=== PATIENT | female | born 1930 | race Caucasian/White ===

== ENCOUNTER 2016-12-21 23:26 | Inpatient (IN) | payer OTHER, MEDICARE ==
[~2016-12-21] VITALS: Ht 162.6 cm; Wt 72.6 kg
[~2016-12-21 23:26] MED LIST: CITALOPRAM HBR20 MG PO; CLOPIDOGREL75 M1 PO; FOSAMAX70 M1 PO; HYDRALAZINE HCL25 M1 PO; KLOR-CON 10MEQ10 MEQ PO; LISINOPRIL40 M1 PO; METOPROLOL SUCC25 M1 PO; METRONIDAZOLE500 MG PO; NEURONTIN100 M1 PO; NORVASC5 M1 PO; SYNTHROID88 MCG PO; VESICARE10 MG PO
--- NOTE | 2016-12-21 23:36 | NUR ---
TRIAGE: PATIENT TO ER FROM HOME REPORTING "BEEN ON THE TOILET W/ DIARRHEA SINCE 6PM, BRIGHT RED BLOOD IN THE TOILET. FELT LIKE I WAS SEEING SPOTS AND GOT VERY NAUSEOUS." DENIES VOMITTING/ CP/ SOB/ ABD PAIN. ALSO REPORTING INCREASED WEAKNESS (WALKER DEPENDENT BASELINE, UNABLE TO RISE W/O ASSIST X2 IN TRIAGE). CURRENTLY HAS A UTI PER PATIENT. ALSO REPORTING "VERY DRY MOUTH."
--- NOTE | 2016-12-21 23:43 | NUR ---
MD JOLENE SHINE FOR EVAL. ORTHOSTATIC BPS IN PROGRESS.
--- NOTE | 2016-12-21 23:54 | ED GI/GU/ABDOMINAL COMPLAINT ---
History of Present Illness General Chief Complaint: General Adult Stated Complaint: ?GI BLEED, BLOOD IN STOOL Source: patient, family, old records Exam Limitations: no limitations Vital Signs & Intake/Output Vital Signs & Intake/Output Vital Signs Date Time Temp Pulse Resp B/P B/P Pulse O2 O2 Flow FiO2 Mean Ox Delivery Rate 12/21 2352 66 153/71 12/21 2351 153/71 12/21 2337 97.9 67 18 96 Room Air ED Intake and Output 12/22 0000 12/21 1200 Intake Total Output Total Balance Patient 160 lb Weight Weight Reported by Patient Measurement Method Allergies Uncoded Allergies: "UNKNOWN ANTIBIOTIC" (PER PATIENT "FORGOT THE NAME" 12/21/16) Reconcile Medications Alendronate Sodium 70 MG TAB 1 TAB PO DAILY osteoporosis (Reported) Amlodipine (Norvasc 5MG Tab) 5 MG TABLET 1 TAB PO DAILY bp (Reported) Citalopram Hydrobromide (Citalopram HBr) 20 MG TABLET 1 TAB PO DAILY depression (Reported) CLOPIDOGREL BISULFATE (Clopidogrel) 75 MG TABLET 1 TAB PO DAILY pvd (Reported ) PLEASE RESTART ON Thursday Gabapentin 100 MG CAPSULE 1 TAB PO Q8H neuropathy (Reported) HYDRALAZINE HCL (Hydralazine HCl) 25 MG TABLET 1 TAB PO TID bp (Reported) Levothyroxine Sodium 0.088 MG TAB 1 TAB PO DAILY thyroid (Reported) Lisinopril 20 MG TABLET 1 TAB PO DAILY bp (Reported) Metoprolol Succinate 25 MG TAB.ER.24H 1 TAB PO DAILY bp (Reported) hold for sbp <100, hr < 60 Metronidazole 500 MG TAB 1 TAB PO TID c difficle Mirabegron (Myrbetriq) 50 MG TAB.ER.24H 50 MG PO D URINE (Reported) POTASSIUM CHLORIDE (KLOR-CON 10mEq TAB) 10 MEQ TABLET.ER 1 TAB PO DAILY supplement (Reported) Solifenacin Succinate (Vesicare) 10 MG TABLET 1 TAB PO DAILY overactive bladder (Reported) Triage Note: TRIAGE: PATIENT TO ER FROM HOME REPORTING "BEEN ON THE TOILET W/ DIARRHEA SINCE 6PM, BRIGHT RED BLOOD IN THE TOILET. FELT LIKE I WAS SEEING SPOTS AND GOT VERY NAUSEOUS." DENIES VOMITTING/ CP/ SOB/ ABD PAIN. ALSO REPORTING INCREASED WEAKNESS (WALKER DEPENDENT BASELINE, UNABLE TO RISE W/O ASSIST X2 IN TRIAGE). CURRENTLY HAS A UTI PER PATIENT. ALSO REPORTING "VERY DRY MOUTH." Triage Nurses Notes Reviewed? yes ? n Is pt currently ? No Onset: Gradual Duration: hour(s): Timing: single episode today Quality/Severity: cramping Location: generalized abdomen Radiation: no radiation Activities at Onset: pt has been on antibiotics Prior Abdominal Problems: none Modifying Factors: Worsens With: defecating. Associated Symptoms: abdominal pain HPI: 86 yo woman presents with diarrhea and abdominal pain since this evening, with few clots of blood mixed with her stool. She notes that she feels thirsty and weak. She notes diffuse abdominal cramps, no nausea, vomiting, diarrhea, chest pain. Her doctor notes her daughter notes that she is normally on Augmentin 3 times a week for prophylaxis of urinary tract infections. She began Bactrim approximately one week ago for treatment of an acute infection. h. Past History Travel History Traveled to [place] past 21 day No Medical History Any Pertinent Medical History? 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 No Review of Systems Review of Systems Constitutional: Reports: no symptoms. EENTM: Reports: no symptoms. Respiratory: Reports: no symptoms. Cardiovascular: Reports: no symptoms. GI: Reports: no symptoms. Genitourinary: Reports: no symptoms. Musculoskeletal: Reports: no symptoms. Skin: Reports: no symptoms. Neurological/Psychological: Reports: no symptoms. Hematologic/Endocrine: Reports: no symptoms. Immunologic/Allergic: Reports: no symptoms. All Other Systems: Reviewed and Negative Physical Exam Physical Exam General Appearance: well developed/nourished, mild distress Head: atraumatic, normal appearance Eyes: Bilateral: normal appearance. Ears, Nose, Throat, Mouth: hearing grossly normal Neck: normal inspection, supple, full range of motion, normal alignment Respiratory: normal breath sounds, chest non-tender, no respiratory distress, quiet respiration, lungs clear Cardiovascular: regular rate/rhythm Gastrointestinal: normal bowel sounds, soft, left sided tenderness without rebound or guarding. Rectal: mucusy stool streaked with mucusy blood Back: normal inspection Extremities: normal range of motion Neurologic/Psych: no motor/sensory deficits, awake, alert, oriented x 3 Skin: intact, normal color, warm/dry Core Measures ACS in differential dx? No Severe Sepsis Present: No Septic Shock Present: No Progress Differential Diagnosis: cholecystitis, diverticulitis, gastritis, hepatitis, PUD /GERD Plan of Care: Orders Procedure Date/time Status Patient Data 12/22 045 Active BLOOD CULTURE 12/22 045 Active Add-on Test (ER Only) 12/22 0415 Active CULTURE,URINE 12/22 0346 Active URINALYSIS 12/22 020 Complete TROPONIN LEVEL 12/21 2355 Complete LIPASE 12/21 2355 Complete LACTIC ACID 12/21 2355 Complete HEPATIC FUNCTION PANEL 12/21 2355 Complete CBC WITHOUT DIFFERENTIAL 12/21 2355 Complete BASIC METABOLIC PANEL 12/21 2355 Complete AMYLASE 12/21 2355 Complete EKG 12/21 2327 Active Current Medications Sig/Jason Start time Last Medication Dose Stop Time Status Admin Ceftriaxone Sodium 1,000 MG ONCE ONE 12/22 0500 UNVr (Rocephin) 12/22 0501 Metronidazole 500 MG ONCE ONE 12/22 0500 UNVr (Flagyl) 12/22 0501 Laboratory Tests 12/22/16 0346: Urinalysis MOD H, Urine Color DIEUDONNE, Urine Clarity TURBD H, Urine pH 6.0, Ur Specific [place] 1.020, Urine Protein >=300 H, Urine Ketones TRACE H, Urine Nitrite POS H, Urine Bilirubin NEG@ICTO, Urine Urobilinogen 1.0, Ur Leukocyte Esterase LARGE H, Ur Microscopic SEDIMENT EXAMINED, Urine RBC >75 H, Urine WBC 50-75 H, Urine Bacteria MANY H, Hyaline Casts , Granular Casts 1-3 H, Urine Mucus MANY H, Urine Hemoglobin LARGE H, Urine Glucose NEG 12/22/16 0255: Lactic Acid Cancelled 12/22/16 0012: Anion Gap 14, Estimated GFR 52 L, BUN/Creatinine Ratio 23.0, Glucose 145 H, Lactic Acid 2.0, Calcium 9.2, Total Bilirubin 0.4, Direct Bilirubin 0.2, AST 26, ALT 29, Alkaline Phosphatase 46, Troponin I 0.01, Total Protein 7.0, Albumin 4.1 , Amylase 314 H, Lipase 271, CBC w Diff MAN DIFF ORDERED, RBC 4.06 L, MCV 92.2 , MCH 30.4, RDW 15.0 H, MPV 7.2 L, Gran % 90.7 H, Lymphocytes % 3.8 L, Monocytes % 5.4, Eosinophils % 0, Basophils % 0.1, Absolute Granulocytes 11.9 H , Segmented Neutrophils 78 H, Band Neutrophils 9 H, Absolute Lymphocytes 0.5 L, Lymphocytes 6 L, Monocytes 7, Absolute Monocytes 0.7 H, Absolute Eosinophils 0, Absolute Basophils 0, Platelet Estimate ADEQUATE, Normocytic RBCs VERIFIED, Normochromic RBCs VERIFIED, PUBS MCHC 33.0 Microbiology 12/22 449 BLOOD: Blood Culture - ORD 12/22 449 BLOOD: Blood Culture - ORD 12/22 034 URINE ROUT: Urine Culture - RECD Diagnostic Imaging: Viewed by Me: CT Scan. Discussed w/RAD: CT Scan. Radiology Impression: abd/pelvic ct... colitis, thickened bladder Initial ED EKG: left axis deviation. no acute change. Comments: PATIENT: ROYAL MOMIN PRESENT AGE: 86 PATIENT ACCOUNT NO: [id number] : [birth year] LOCATION: [facility] ORDERING PHYSICIAN: GILMA MEEKS MD SERVICE DATE: 12/22/16 EXAM TYPE: CAT - CT ABD & PELVIS W/O IV CONTRAS EXAMINATION: CT ABDOMEN AND PELVIS WITHOUT CONTRAST CLINICAL INFORMATION: Diarrhea, left-sided abdominal discomfort. COMPARISON: 10/24/2013 TECHNIQUE: Multidetector volumetric imaging was performed from the superior aspect of the liver through the pubic symphysis. Sagittal and coronal reformatted images were obtained on the technologist's workstation. DLP: 314 mGy-cm FINDINGS: LUNG BASES: Large hiatal hernia produces mass effect upon the left lower lobe with associated left lower lobe atelectasis. Heart is globally enlarged. LIVER, GALLBLADDER, AND BILIARY TREE: The liver is normal in size, shape, and attenuation. No focal hepatic lesion or biliary ductal dilatation is present. The gallbladder is unremarkable with no evidence of radiopaque gallstones, gallbladder wall thickening, or obvious pericholecystic inflammatory changes. PANCREAS: Unremarkable. SPLEEN: Unremarkable. ADRENAL GLANDS: Unremarkable. KIDNEYS AND URETERS: The kidneys are normal in size, shape, and attenuation. No hydronephrosis, hydroureter, or calculi seen. No perinephric stranding. BLADDER: Bladder is diffusely thick-walled, suggesting underlying inflammation. No focal lesions are identified. GASTROINTESTINAL TRACT: Large hiatal hernia is present, containing the majority of the stomach. Small bowel is normal in caliber. There is herniation of numerous loops of small bowel into the left lower quadrant hernia, likely a large spigelian hernia. The terminal ileum and cecum are situated within a right inguinal hernia. The right inguinal hernia may be a pantaloon type variant. Significant fluid is present within the more inferior pocket. There is diffuse wall thickening in the colon with pericolonic fat stranding, most pronounced in the descending colon, most concerning for colitis. The sensitivity and specificity of this abnormality is somewhat limited by the absence of intravenous and oral contrast material. No evidence of obstruction. ABDOMINAL WALL: As above, are prominent bowel containing hernias in the left lower quadrant and right lower quadrant. The left lower quadrant hernia is likely a spigelian hernia. The right lower quadrant hernia appears mixed with 2 separate components, potentially both inguinal or 1 inguinal and 1 spigelian. Fluid is present within the inferior component of the right lower quadrant/inguinal hernia. No evidence of obstruction. LYMPH NODES: No appreciable adenopathy. VASCULAR: Calcific atherosclerosis is present in the abdominal aorta and iliac arteries. No aneurysmal dilatation. PELVIC VISCERA: Uterus is surgically absent. Ovaries are not discretely seen. OSSEOUS STRUCTURES: There is severe left convex lumbar scoliosis with multilevel degenerative disc disease. There is a chronic compression deformity of L4 which is status post kyphoplasty. No acute fractures are appreciated. IMPRESSION: 1. Pancolitis, most pronounced in the descending colon. 2. Large hiatal hernia 3. Large bowel containing hernias in the left lower quadrant and right lower quadrant. No evidence of obstruction. 4. Thickened bladder wall, potentially due to underlying inflammation. Consider correlation with urinalysis to assess for potential cystitis. 5. Cardiomegaly DICTATED BY: ARPAN RIBEIRO MD DATE/TIME DICTATED:12/22/1648 SEMI AUTOMATIC SEWING MACHINE OPERATOR:RANJEET DATE/TIME TRANSCRIBED:12/22/1648 CONFIDENTIAL, DO NOT COPY WITHOUT APPROPRIATE AUTHORIZATION. <Electronically signed in Other Vendor System> SIGNED BY: ARPAN RIBEIRO MD 12/22/16 0103 Departure Departure Disposition: HOME OR SELF CARE Condition: Stable Clinical Impression Primary Impression: UTI (urinary tract infection) Secondary Impressions: Colitis, Weakness Referrals: DEBBY RALPH,CONSTANCE Craft (PCP/Family) Departure Forms: Customer Survey General Discharge Information Admission Note Spoke With: STEPHANE WILSON MD Documentation of Exam: Documentation of any treatments & extenuating circumstances including Concerns Regarding Discharge (functional status, medication knowledge or non-compliance, living conditions, etc.) that warrant an admission rather than observation: pt with multi-system involvement: She has a uti that is recalcitrant to outpatient abx (bactrim x 1 week with augmentin prophylaxis). Also, pt with payton colitis
--- NOTE | 2016-12-22 00:11 | NUR ---
PT MOVED TO RM 1, PT PLACED ON MONITOR. THIS RN ESTABLISHED IV ACCESS IN RAC #20 (LABS DRAWN AND SENTSST LAV, BLUE, PICKENS)
--- NOTE | 2016-12-22 00:25 | NUR ---
PT TO CT SCAN VIA STRETCHER, DAUGHTER IN RM AWAITING RETURN OF PT
[2016-12-22 00:35] LABS: ABSOLUTE BASOPHIL COUNT 0 /CUMM (0.0-0.2); ABSOLUTE EOSINOPHIL COUNT 0 /CUMM (0.0-0.7); ABSOLUTE GRANULOCYTE CT 11.9 /CUMM (1.4-6.5); ABSOLUTE LYMPH COUNT 0.5 /CUMM (1.2-3.4); ABSOLUTE MONOCYTE COUNT 0.7 /CUMM (0.10-0.60); BASOPHIL % 0.1 % (0.0-2.0); EOSINOPHIL % 0 % (0-5); HEMATOCRIT 37.4 % (37-47); MEAN CORPUSCULAR HGB 30.4 PG (27.0-31.0); MEAN CORPUSCULAR VOLUME 92.2 FL (81.0-99.0); MEAN PLATELET VOLUME 7.2 FL (7.4-10.4); PLATELET COUNT 330 /CUMM (130-400); RED BLOOD CELL CT 4.06 /CUMM (4.20-5.40); WHITE BLOOD CELL COUNT 13.1 /CUMM (4.8-10.8)
[2016-12-22 00:37] LABS: GRANULOCYTE % 90.7 % (42.2-75.2)
--- NOTE | 2016-12-22 00:43 | NUR ---
RETURNED TO ED
--- NOTE | 2016-12-22 00:58 | NUR ---
CRITICAL TEST RESULTS [id number] ROYAL MOMIN 86 F TESTS AND RESULTS: LACTIC 2.0 Results received and read back by: MIRIAM WIGGINS Results received date and time: 12/22/1657 The following provider was notified of the results, and read the results back: DR MEEKS Notified date and time: 12/22/16 at 0058
--- NOTE | 2016-12-22 01:03 | CT SCAN REPORT ---
EXAMINATION: CT ABDOMEN AND PELVIS WITHOUT CONTRAST CLINICAL INFORMATION: Diarrhea, left-sided abdominal discomfort. COMPARISON: 10/24/2013 TECHNIQUE: Multidetector volumetric imaging was performed from the superior aspect of the liver through the pubic symphysis. Sagittal and coronal reformatted images were obtained on the technologist's workstation. DLP: 314 mGy-cm FINDINGS: LUNG BASES: Large hiatal hernia produces mass effect upon the left lower lobe with associated left lower lobe atelectasis. Heart is globally enlarged. LIVER, GALLBLADDER, AND BILIARY TREE: The liver is normal in size, shape, and attenuation. No focal hepatic lesion or biliary ductal dilatation is present. The gallbladder is unremarkable with no evidence of radiopaque gallstones, gallbladder wall thickening, or obvious pericholecystic inflammatory changes. PANCREAS: Unremarkable. SPLEEN: Unremarkable. ADRENAL GLANDS: Unremarkable. KIDNEYS AND URETERS: The kidneys are normal in size, shape, and attenuation. No hydronephrosis, hydroureter, or calculi seen. No perinephric stranding. BLADDER: Bladder is diffusely thick-walled, suggesting underlying inflammation. No focal lesions are identified. GASTROINTESTINAL TRACT: Large hiatal hernia is present, containing the majority of the stomach. Small bowel is normal in caliber. There is herniation of numerous loops of small bowel into the left lower quadrant hernia, likely a large spigelian hernia. The terminal ileum and cecum are situated within a right inguinal hernia. The right inguinal hernia may be a pantaloon type variant. Significant fluid is present within the more inferior pocket. There is diffuse wall thickening in the colon with pericolonic fat stranding, most pronounced in the descending colon, most concerning for colitis. The sensitivity and specificity of this abnormality is somewhat limited by the absence of intravenous and oral contrast material. No evidence of obstruction. ABDOMINAL WALL: As above, are prominent bowel containing hernias in the left lower quadrant and right lower quadrant. The left lower quadrant hernia is likely a spigelian hernia. The right lower quadrant hernia appears mixed with 2 separate components, potentially both inguinal or 1 inguinal and 1 spigelian. Fluid is present within the inferior component of the right lower quadrant/inguinal hernia. No evidence of obstruction. LYMPH NODES: No appreciable adenopathy. VASCULAR: Calcific atherosclerosis is present in the abdominal aorta and iliac arteries. No aneurysmal dilatation. PELVIC VISCERA: Uterus is surgically absent. Ovaries are not discretely seen. OSSEOUS STRUCTURES: There is severe left convex lumbar scoliosis with multilevel degenerative disc disease. There is a chronic compression deformity of L4 which is status post kyphoplasty. No acute fractures are appreciated. IMPRESSION: 1. Pancolitis, most pronounced in the descending colon. 2. Large hiatal hernia 3. Large bowel containing hernias in the left lower quadrant and right lower quadrant. No evidence of obstruction. 4. Thickened bladder wall, potentially due to underlying inflammation. Consider correlation with urinalysis to assess for potential cystitis. 5. Cardiomegaly
[2016-12-22] MEDS ORDERED: MYRBETRIQ50 M1 PO (02:08)
--- NOTE | 2016-12-22 03:01 | NUR ---
DR NIETO FOR POC
--- NOTE | 2016-12-22 03:47 | NUR ---
URINE TRIO OBTAINED AND SENT TO LAB
--- NOTE | 2016-12-22 04:06 | NUR ---
AWAITING URINE SPECIMEN RESULTS.
--- NOTE | 2016-12-22 04:29 | NUR ---
MD MEEKS SPEAKING W/ PATIENT.
--- NOTE | 2016-12-22 04:37 | NUR ---
DR MEEKS IN FOR POC
--- NOTE | 2016-12-22 04:57 | History & Physical ---
JULIANO RALPH,[facility] 12/22/16 0456: General Information and HPI MD Statement: I have seen and personally examined ROYAL MOMIN and documented this H&P. The patient is a 86 year old F who presented with a patient stated chief complaint of [blood in stool]. Source of Information: patient, family (daughter) Exam Limitations: no limitations History of Present Illness: The patient is a 78-year-old female with a past history of CVA, hypertension, GERD, UTI, osteoarthritis, hypothyroidism, neuropathic pain, depression,and urinary incontinence presenting with complaints of blood in her stool. The patient's daughter stated this started couple days ago when the patient noted some blood in her diaper. The daughter asked if the patient would like to go to her PCP. The patient said no. The patient states that the initial blood in her diaper resolved this morning. However, the patient states she started having bloody diarrhea around 6 PM today. The daughter states that she the patient was on the toilet for about 4 hours. The patient has noticed clots and bright red blood in the toilet. Around 10 PM the patient called her daughter to bring her into the emergency department. The daughter noticed that the patient was pale and weak. The daughter was concerned of a GI bleed secondary to Plavix. The patient denies any chest pain, shortness of breath, nausea or vomiting. The patient is on Augmentin prophylactically but was switched to Bactrim by her PCP, Dr. Russo last week on December 12 for presumed UTI due to symptoms of dysuria, increased urinary frequency, hematuria and chills. 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 Cardiovascular: Denies: chest pain. Respiratory: Denies: short of breath. GI: Denies: nausea, vomiting. Exam & Diagnostic Data Last 24 Hrs of Vital Signs/I&O Vital Signs Date Time Temp Pulse Resp B/P B/P Pulse O2 O2 Flow FiO2 Mean Ox Delivery Rate 12/21 2352 66 153/71 12/21 2351 153/71 12/21 2337 97.9 67 18 96 Room Air Intake & Output 12/22 0800 12/22 0000 12/21 1600 Intake Total 500 Output Total Balance 500 Intake, IV 500 Patient 160 lb Weight Weight Reported by Patient Measurement Method Physical Exam General Appearance Alert, Oriented X3, Cooperative, No Acute Distress HEENT Atraumatic, PERRLA, EOMI, no tracheal deviation, tenderness, or lymphadenopathy of the neck Cardiovascular systolic murmur loudest in the aortic region Lungs Clear to Auscultation, Normal Air Movement Abdomen Normal Bowel Sounds, Soft, No Tenderness, abdominal hernia noted on the right and left abdomen Neurological Normal Speech Extremities No Edema, Normal Pulses, chronic venous stasis changes greater on the right than left Last 24 Hrs of Labs/Chas: Laboratory Tests 12/22/16 0346: Urinalysis MOD H, Urine Color DIEUDONNE, Urine Clarity TURBD H, Urine pH 6.0, Ur Specific [place] 1.020, Urine Protein >=300 H, Urine Ketones TRACE H, Urine Nitrite POS H, Urine Bilirubin NEG@ICTO, Urine Urobilinogen 1.0, Ur Leukocyte Esterase LARGE H, Ur Microscopic SEDIMENT EXAMINED, Urine RBC >75 H, Urine WBC 50-75 H, Urine Bacteria MANY H, Hyaline Casts , Granular Casts 1-3 H, Urine Mucus MANY H, Urine Hemoglobin LARGE H, Urine Glucose NEG 12/22/16 0255: Lactic Acid Cancelled 12/22/16 0012: Anion Gap 14, Estimated GFR 52 L, BUN/Creatinine Ratio 23.0, Glucose 145 H, Lactic Acid 2.0, Calcium 9.2, Total Bilirubin 0.4, Direct Bilirubin 0.2, AST 26, ALT 29, Alkaline Phosphatase 46, Troponin I 0.01, Total Protein 7.0, Albumin 4.1 , Amylase 314 H, Lipase 271, TSH 12.400 H, Free T4 1.22, CBC w Diff MAN DIFF ORDERED, RBC 4.06 L, MCV 92.2, MCH 30.4, RDW 15.0 H, MPV 7.2 L, Gran % 90.7 H, Lymphocytes % 3.8 L, Monocytes % 5.4, Eosinophils % 0, Basophils % 0.1, Absolute Granulocytes 11.9 H, Segmented Neutrophils 78 H, Band Neutrophils 9 H, Absolute Lymphocytes 0.5 L, Lymphocytes 6 L, Monocytes 7, Absolute Monocytes 0.7 H, Absolute Eosinophils 0, Absolute Basophils 0, Platelet Estimate ADEQUATE, Normocytic RBCs VERIFIED, Normochromic RBCs VERIFIED, PUBS MCHC 33.0 Microbiology 12/22 0713 STOOL: Clostridium difficile Toxin A & B - ORD 12/22 0641 BLOOD: Blood Culture - RECD 12/22 0510 BLOOD: Blood Culture - RECD 12/22 0346 URINE ROUT: Urine Culture - RECD Diagnostic Data Other Results CT ABD IMPRESSION: 1. Pancolitis, most pronounced in the descending colon. 2. Large hiatal hernia 3. Large bowel containing hernias in the left lower quadrant and right lower quadrant. No evidence of obstruction. 4. Thickened bladder wall, potentially due to underlying inflammation. Consider correlation with urinalysis to assess for potential cystitis. 5. Cardiomegaly Assessment/Plan Assessment: The patient is a 78-year-old female with a past history of CVA, hypertension, GERD, UTI, osteoarthritis, hypothyroidism, neuropathic pain, depression,and urinary incontinence presenting with complaints of blood in her stool found to have pancolitis on CT abdomen and evidence of ongoing urinary tract infection on urinalysis. As Ranked By This Provider Problem List: 1. Colitis Assessment/Plan The patient's daughter stated this started couple days ago when the patient noted some blood in her diaper. The patient started having bloody diarrhea around 6 PM today and was on the toilet for about 4 hours. The patient has noticed clots and blood in the toilet. The daughter was concerned of a GI bleed secondary to Plavix. She was afebrile on exam, WBC 13.1, lactate 2.0, amylase 314. H&H was 12.3 and 37.4 respectively. Given the patient's presentation of bloody diarrhea and pancolitis on CT, differential includes C. difficile infection, ulcerative colitis/Crohn's disease. We will treat prophylactically for C. difficile infection with Flagyl. We will obtain a C. difficile toxin stool sample. We will hemooccult all stools. We will keep her NPO and hydrate with D5-1/2 @100ml/hr. We will monitor her CBC q12 hours. We will need a GI consult for further management recommendations. We will consider holding Plavix until GI recommendations. -hemooccult all stools -f/u CBCs and BMP, tranfuse if hgb<7. -monitor CBC q12 hrs -Continue Flagyl 500 mg every 8 -Follow-up C. difficile stool toxin/culture -Follow-up GI consult -Consider holding Plavix until GI recommendations 2. UTI (urinary tract infection) Assessment/Plan The patient had symptoms of UTI on December 12. Her daughter called her PCP, Dr. Russo who switched her from her daily Augmentin prophylaxis to Bactrim. On admission her temperature was 97.9, white count 13.1, lactic acid 2.0, BUN/ creatinine 23, and creatinine 1.0 which is above her baseline of 0.8. Her urinalysis revealed positive large leukoesterase, positive nitrites, white blood cells 50-75 and greater than 75 red blood cells. We will continue the patient on IV ceftriaxone and follow-up urine cultures. We will also hydrate the patient on normal saline at 75 mL/hr. -Follow-up urine culture -Continue ceftriaxone -Continue hydration d5 1/2 NS @ 100ml/hr as stated above 3. HTN (hypertension) Assessment/Plan Patient has a history of hypertension. We'll continue her on her home medications. -Metoprolol 25 mg daily -Amlodipine 5 mg daily 4. Depression Assessment/Plan The patient has history of depression. We'll continue her on home medications. -Citalopram 20 mg daily 5. Hypothyroidism Assessment/Plan The patient has history of hypothyroidism. We will continue her on home medications -levothyroxine 0.088 mg daily 6. Neuropathic pain Assessment/Plan The patient has history of neuropathic pain. We'll continue her on home medication -Gabapentin 100 mg 3 times a day 7. DVT prophylaxis Assessment/Plan ALPS 8. Full code status Assessment/Plan Full code Core Measures/Miscellaneous Acute Coronary Syndrome ACS Diagnosis: No Cerebrovascular Accident CVA/TIA Diagnosis: No Congestive Heart Failure CHF Diagnosis: No VTE (View Protocol) VTE Risk Factors: Acute medical illness, Age > 40 [facility] prophylaxis d/t: No contraindications No VTE Pharm Prophylaxis d/t: No contraindications VTE Diagnosis: No VTE Type: NONE VTE Confirmed by (Test): NONE Sepsis (View Protocol) Severe Sepsis Present: No Septic Shock Septic Shock Present: No Miscellaneous Documentation Attending Case Discussed With: NARESH GONZALEZ M.D Primary Care Physician: CONSTANCE RUSSO MD Patient sees these Specialists NA Level of Patient Care: General Medicine ASHUTOSH PEREZ MD 12/22/16 0617: Resident Review Statement Resident Statement: examined this patient, discussed with internet assessor, agreed with internet assessor Other Findings: H: This is a very pleasant 86-year-old female with past medical history of recurrent UTIs, hypothyroidism, CVA, hypertension, depression, urinary incontinence, neuropathic pain who presented to the emergency department on 12/22 complaining of weakness, and acute diarrhea which began in the early evening of 12/21/2016. Some of the clinical history was obtained from the patient's daughter Brie who was present at the time of our interaction. On 12/12/2016 the patient began to experience urine frequency, dysuria and hematuria. She was subsequently started on Bactrim twice a day for presumed UTI under the care of a primary care physician Dr. Mosley. Patient reports that she began to feel better however in the early evening of 12/21/2016 at approximately 6 PM she began to experience worsening abdominal pain and diarrhea. She states that she spent approximately 4 hours having multiple loose stools. This stool contained combination of clots and hematochezia. At approximately 10 PM the patient called her daughter and the decision was made to bring the patient into the emergency department for additional care. Patient's daughter can be reached on [phone]. It must be mentioned in addition to the above the patient does have a history of chronic urinary tract infections and is prophylactically treated with Augmentin 3 times a per week. Patient does have a history to allergies with nitrofurantoin. R: Patient reports subjective chills. She denies any vomiting. She denies any chest pain or chest discomfort. She denies any difficulty breathing. She also states that she had a slight fever. E: HEENT: extraocular motion intact, no nystagmus. Pupils equally round and reactive to light and accommodation. Nose is atraumatic. External auditory canal and Tympanic membranes clear. Pharynx normal. No swelling or edema. Mucous membranes dry. Neck: Supple, no lymphadenopathy, normal range of motion without pain or tenderness Back: Nontender. Cardiovascular: Regular rate, systolic murmur noted, loudest in Mitral Area Respiratory: Chest nontender. CTA Abdomen: Soft, tender with light palpation on LLQ. nondistended, no appreciable organomegaly. Bowel sounds +. No ascites, no rebound or guarding. Extremity: No edema, no calf tenderness to palpation, normal and equal pulses. Neuro: Alert oriented to person and place,motor sensory normal, CN II to XII wnl. L: Labs at the time of admission notable for white cell count of 13.1. Band neutrophils 9. BUNs 23. Creatinine 1.0. Glucose 145. Initial amylase 314. TSH and free T4 currently pending. Urine + for Nitrite and Large Leukocyte Esterase I: CT ABD & PELVIS W/O IV CONTRAST IMPRESSION: 1. Pancolitis, most pronounced in the descending colon. 2. Large hiatal hernia 3. Large bowel containing hernias in the left lower quadrant and right lower quadrant. No evidence of obstruction. 4. Thickened bladder wall, potentially due to underlying inflammation. Consider correlation with urinalysis to assess for potential cystitis. 5. Cardiomegaly A/P: This is a very pleasant 86-year-old female with past medical history of recurrent UTIs, hypothyroidism, CVA, hypertension, depression, urinary incontinence, neuropathic pain who presented to the emergency department on 12/22 complaining of weakness, and acute diarrhea which began in the early evening of 12/21/2016. The patient above is leaning towards an acute episode of C. difficile in the setting of recent antibiotic exposure. This is somewhat a typical owing to the fact that C.Diff is not associated with blood in stool. Patient also continues to have evidence of leukocyte esterase in urine and positive nitrite. At the ED, the patient was: Bolus with 500 ml of fluids. Given a One time order of ceftriaxone (1000 mg) and one time order of metronidazole (500 mg) Admit the patient to general medicine. Follow-up urine culture. For now we will continue the patient on IV Ceftriaxone , till sensitivities return. Patient has previously grown Escherichia coli sensitive to, ciprofloxacin, gentamicin, levofloxacin, TMP-SMX and amoxicillin/ Clavulinic Acid. Gentle IV hydration at 75 mL. Continue by mouth Flagyl 500 mg Q8 for presumed C. difficile. Will likely require 10 - 14 days of therapy if positive. f/u C.Diff toxin. May Cosider ID Consultation. GI consult obtained in the setting of pancolitis (other causes for payton colitis may include IBD/acute ischemic colitis) found on imaging studies. Repeat CBC and BEP 12/23/2016. Hemoccult all stools. Continue levothyroxine, follow up TSH and Free T4 to ensure therapeutic values are being reached. Continue metoprolol extended release 25 mg daily. Continue citalopram. May resume medications one patient is more stable and does not have evidence of GI blood loss. Keep NPO for now, incase emergent GI work up is warranted. DVT prophylaxis: ALPS. Patient is a full code. LISA RALPH,NARESH 12/22/16 8188: General Information and HPI Allergies/Medications Home Med list Alendronate Sodium (Fosamax) 70 MG TABLET 1 TAB PO QSATUR OSTEOPOROSIS ( Reported) in the morning, at least 30 minutes before the first food, beverage, or medication of the day Amlodipine Besylate (Norvasc) 5 MG TABLET 1 TAB PO DAILY HTN (Reported) Cholecalciferol (Vitamin D3) (Vitamin D3) 1,000 UNIT CAPSULE 1 CAP PO DAILY SUPPLEMENT (Reported) Citalopram Hydrobromide (Citalopram HBr) 20 MG TABLET 1 TAB PO AT BEDTIME DEPRESSION (Reported) Clopidogrel Bisulfate (Clopidogrel) 75 MG TABLET 1 TAB PO DAILY TIA (Reported ) Cyanocobalamin (Vitamin B-12) 1,000 MCG TABLET 1 TAB PO DAILY SUPPLEMENT ( Reported) Fish Oil/Borage/Flax/Om3,6,9#1 ([place] 3-6-9 1,200 MG Softgel) 1,200 MG CAPSULE 1 CAP PO DAILY SUPPLEMENT (Reported) Furosemide (Lasix) 40 MG TABLET 1 TAB PO DAILY WATER PILL (Reported) Gabapentin (Neurontin) 100 MG CAPSULE 1 CAP PO TID NEUROPATHY (Reported) Hydralazine HCl 25 MG TABLET 1 TAB PO TID HTN (Reported) Levothyroxine Sodium (Synthroid) 88 MCG TABLET 1 TAB PO DAILY HYPOTHYROIDISM (Reported) Lisinopril 40 MG TABLET 1 TAB PO DAILY HTN (Reported) Metoprolol Succinate 25 MG TAB 1 TAB PO DAILY HEART (Reported) Mirabegron (Myrbetriq) 50 MG TAB.ER.24H 50 MG PO DAILY URINE (Reported) Oxybutynin Chloride (Ditropan XL) 10 MG TAB.ER.24 1 TAB PO DAILY URINARY INCONTINENCE (Reported) Oxycodone HCl/Acetaminophen (Endocet 5-325 Tablet) 5 MG-325 MG TABLET 1 TAB PO DAILY PRN PAIN (Reported) Potassium Chloride (Klor-Con 10) 10 MEQ TABLET.ER 1 TAB PO DAILY SUPPLEMENT ( Reported) POTASSIUM CHLORIDE (KLOR-CON 10mEq TAB) 10 MEQ TABLET.ER 1 TAB PO DAILY supplement (Reported) Solifenacin Succinate (Vesicare) 10 MG TABLET 1 TAB PO DAILY overactive bladder (Reported) Attending MD Review Statement Attending Statement Attending MD Statement: examined this patient, discuss w/resident/PA/BAKERY AND DELI SALES MANAGER, agreed w/resident/PA/BAKERY AND DELI SALES MANAGER, reviewed EMR data (avail), discussed with nursing, amended to note Attending Assessment/Plan: Patient seen and examined. I have reviewed and agree with the history of physical as dictated by the resident above. Patient is a very pleasant 78-year- old female with history significant for colitis about 3 years ago managed conservatively at that time. Presents with complaints of painless rectal bleeding. Blood was bright red in color and not just in her diaper. She had several episodes prior to presentation. Denied abdominal pain. Denied nausea vomiting. Denied any trauma. Also significant in her history is recent use of Bactrim for bout of urinary tract infection. At present she denies any dysuria although she continues to report urinary incontinence. 's arrival emergency room she was hemodynamically stable she did have a low- grade fever while in the emergency room. Imaging reveals pancolitis and thickened urinary bladder wall potentially due to underlying inflammation. On examination she is alert and oriented 3 and not in any distress. Lungs are clear to auscultation bilaterally. Heart sounds are regular with a 2/6 systolic normal. Lungs are clear to auscultation bilaterally. Abdomen is nondistended soft, nontender with normal bowel sounds. Lower extremities show trace pedal edema. Problems: 1. Lower gastrointestinal bleeding 2. Pancolitis 3. Cystitis 4. Uncontrolled hypothyroidism Plan: -Admit to the inpatient general medical service. -Keep nothing by mouth and hydrated with D5 half at 100 mL an hour. -Monitor CBCs every 12 hours. Transfuse to keep hemoglobin greater than 7. -Empiric antibiotic therapy with Rocephin/Flagyl. Follow-up stool for C. difficile and culture. Ischemic colitis appears less likely with a normal lactic acid level. Elevated amylase level is nonspecific. -GI consultation placed. -Follow-up urine cultures. Patient's currently empirically on Rocephin. -Increase Synthroid dose to 100 g daily. Repeat TSH in 72 hours and then in 6 weeks. -Hold Plavix for now which she was started on digital history of TIA. May resume if she shows no evidence of significant bleeding. -DVT prophylaxis with bilateral compression devices for now. Mobilize patient as tolerated.
--- NOTE | 2016-12-22 06:30 | NUR ---
PHARMACY PAGED FOR MEDS.
--- NOTE | 2016-12-22 06:52 | NUR ---
PATIENT MEDICATED W/ NEURONTIN AND SYNTHROID PER EMAR. TOLERATED WELL.
--- NOTE | 2016-12-22 08:08 | NUR ---
ASSUMED CARE OF PT AT THIS TIME. PT AWOKEN FOR VITAL SIGNS, STATES SHE FEELS "SO-SO" THIS MORNING. STATES SHE IS JUST TIRED AND WOULD LIKE TO SLEEP. PT AWARE SHE IS ON AN NPO DIET AT THIS TIME. PT OFFERS NO COMPLAINT, LIGHTS DIMMED SO PT CAN GO BACK TO SLEEP, CALL JAVED IN REACH. DENIES PAIN AT THIS TIME. WILL CTM
--- NOTE | 2016-12-22 08:36 | NUR ---
NORAML SALINE INFUISNG AT 75ML/HR AT THIS TIME PER ORDER FROM BRIDGET
--- NOTE | 2016-12-22 08:50 | NUR ---
pt to room 203
--- NOTE | 2016-12-22 09:32 | NUR ---
ATTEMPTED TO CALL REPORT TO FLOOR, NO ANSWER. AWAITING CALL BACK
[2016-12-22 11:47] VITALS: BP 116/60
[2016-12-22] MEDS ORDERED: LASIX40 M1 PO (12:08)
[2016-12-22] MEDS ORDERED: DITROPAN XL10 M1 PO (12:08)
[2016-12-22] MEDS ORDERED: KLOR-CON 1010 ME1 PO (12:09)
[2016-12-22] MEDS ORDERED: VITAMIN D31000 UNI1 PO (12:10)
[2016-12-22] MEDS ORDERED: VITAMIN B-121000 MC3 PO (12:10)
[2016-12-22] MEDS ORDERED: OMEGA 3-6-9 11200 MG PO (12:11)
[2016-12-22] MEDS ORDERED: ENDOCET 5-3251 EACH PO (12:12)
--- NOTE | 2016-12-22 12:30 | NUR ---
NURSING NOTE: PATIENT ARRIVED TO FLOOR VIA STRETCHER WITH DISITRIBUTION FROM ER. PATIENT A/OX3, DENIES PAIN AT THIS TIME. NO ACUTE DISTRESS NOTED AT THIS TIME. ONE BELONGING BAG AND PATIENT'S WALKER FROM HOME BROUGHT WITH PATIENT FROM ER. PATIENT REQUESTING TO WEAR A BRIEF AT THIS TIME SHE NORMALLY WEARS THEM AT HOME AND STATES SHE IS MORE COMFORTABLE IN ONE. IV RUNNING NS PER ORDER. PATIENT WALKED AX1 WITH RW FROM STRETCHER TO RECLINER CHAIR. PATIENT NPO AT THIS TIME, ICE CHIPS GIVEN PER ORDER. CALL JAVED REACH. FALL PRECAUTIONS IN PLACE. WILL CONTINUE TO MONITOR.
--- NOTE | 2016-12-22 12:33 | NUR ---
NURSING NOTE: PATIENT TEMP AT THIS TIME 100.1 AFTER TYLENOL 650MG GIVEN IN ER. ALUMINUM POURER 211 NOTIFIED. INSTRUCTED TO GIVEN IV TYLENOL PER ORDER AND RE-CHECK TEMP IN 1 HOUR.
--- NOTE | 2016-12-22 14:15 | Cons- Gastroenterology ---
General Information and HPI Consulting Request Date of Consult: 12/22/16 Requested By: NARESH GONZALEZ M.D Reason for Consult: Rectal bleeding. Source of Information: patient Exam Limitations: poor historian History of Present Illness: Ms. Briones is an 86 year old female with a PMH of a CVA on plavix, hypertension, GERD, osteoarthritis, hypothyroidism, neuropathic pain, depression,and urinary incontinence who presented to yesterday from home with complaints of rectal bleeding. She notes that she noticed blood in her diaper after supper last night and then she had several episodes of bloody diarrhea last night. She has regular bowel movements going every 3 days and she denies any straining, or hard stool and she has never had bleeding like this before. She was also not having any loose stool prior to last night. The bleednig was not associated with any abodminal pain and she is without any abdominal pain with eating. She does have some nausea, but she has not had any vomiting. She has been on antibiotics for a UTI and she apparently recetnly finishd a course of bactrim. In the ER she was hemodynamically stable and afebrile. She was found to have payton colitis on a ct scan and a UTI on a urinalysis. She was admitted to the medical service and has remained stable since admission without any significant further rectal bleeding. Allergies/Medications Allergies: Uncoded Allergies: "UNKNOWN ANTIBIOTIC" (PER PATIENT "FORGOT THE NAME" 12/21/16) Home Med List: Alendronate Sodium (Fosamax) 70 MG TABLET 1 TAB PO QSAT OSTEOPOROSIS ( Reported) in the morning, at least 30 minutes before the first food, beverage, or medication of the day Amlodipine Besylate (Norvasc) 5 MG TABLET 1 TAB PO DAILY HTN (Reported) Cholecalciferol (Vitamin D3) (Vitamin D3) 1,000 UNIT CAPSULE 1 CAP PO DAILY SUPPLEMENT (Reported) Citalopram Hydrobromide (Citalopram HBr) 20 MG TABLET 1 TAB PO AT BEDTIME DEPRESSION (Reported) Clopidogrel Bisulfate (Clopidogrel) 75 MG TABLET 1 TAB PO DAILY TIA (Reported ) Cyanocobalamin (Vitamin B-12) 1,000 MCG TABLET 1 TAB PO DAILY SUPPLEMENT ( Reported) Fish Oil/Borage/Flax/Om3,6,9#1 ([place]ling 3-6-9 1,200 MG Softgel) 1,200 MG CAPSULE 1 CAP PO DAILY SUPPLEMENT (Reported) Furosemide (Lasix) 40 MG TABLET 1 TAB PO DAILY WATER PILL (Reported) Gabapentin (Neurontin) 100 MG CAPSULE 1 CAP PO TID NEUROPATHY (Reported) Hydralazine HCl 25 MG TABLET 1 TAB PO TID HTN (Reported) Levothyroxine Sodium (Synthroid) 88 MCG TABLET 1 TAB PO DAILY HYPOTHYROIDISM (Reported) Lisinopril 40 MG TABLET 1 TAB PO DAILY HTN (Reported) Metoprolol Succinate 25 MG TAB 1 TAB PO DAILY HEART (Reported) Mirabegron (Myrbetriq) 50 MG TAB.ER.24H 50 MG PO DAILY URINE (Reported) Oxybutynin Chloride (Ditropan XL) 10 MG TAB.ER.24 1 TAB PO DAILY URINARY INCONTINENCE (Reported) Oxycodone HCl/Acetaminophen (Endocet 5-325 Tablet) 5 MG-325 MG TABLET 1 TAB PO DAILY PRN PAIN (Reported) Potassium Chloride (Klor-Con 10) 10 MEQ TABLET.ER 1 TAB PO DAILY SUPPLEMENT ( Reported) POTASSIUM CHLORIDE (KLOR-CON 10mEq TAB) 10 MEQ TABLET.ER 1 TAB PO DAILY supplement (Reported) Solifenacin Succinate (Vesicare) 10 MG TABLET 1 TAB PO DAILY overactive bladder (Reported) Current Medications: Current Medications Sig/Jason Start time Last Medication Dose Route Stop Time Status Admin Acetaminophen 0 .STK-MED ONE 12/22 1007 DC PO Acetaminophen 650 MG Q6P PRN 12/22 0745 AC 12/22 PO 1002 Acetaminophen 1,000 MG Q6P PRN 12/22 0745 AC 12/22 IV 1315 Amlodipine Besylate 5 MG DAILY 12/22 1000 AC 12/22 PO 1322 Ceftriaxone Sodium 1,000 MG DAILY 12/23 1000 AC IV Ceftriaxone Sodium 0 .STK-MED ONE 12/22 0526 DC .ROUTE Ceftriaxone Sodium 1,000 MG ONCE ONE 12/22 0500 DC 12/22 IV 12/22 0501 0644 Citalopram 20 MG DAILY 12/22 1000 AC 12/22 Hydrobromide PO 1322 Gabapentin 100 MG Q8H 12/22 0630 AC 12/22 PO 1322 Hydralazine HCl 25 MG TID 12/22 1000 CAN PO Levothyroxine Sodium 0.1 MG DAILY AC 12/23 0700 AC PO Levothyroxine Sodium 0.088 MG DAILY AC 12/22 0700 DC 12/22 PO 0652 Metoprolol Succinate 25 MG DAILY 12/22 1000 AC 12/22 PO 1322 Metoprolol Tartrate 25 MG DAILY 12/22 1000 DC PO Metronidazole 500 MG Q8 12/22 1400 AC 12/22 PO 1323 Metronidazole 0 .STK-MED ONE 12/22 0526 DC PO Metronidazole 500 MG ONCE ONE 12/22 0500 DC 12/22 PO 12/22 0501 0644 Morphine Sulfate 2 MG ONCE PRN 12/22 0745 DC IV 12/22 1345 Sodium Chloride 1,000 ML SEE RATE 12/22 0545 AC 12/22 IV 0836 Sodium Chloride 500 ML BOLUS ONE 12/22 0300 DC 12/22 IV 12/22 0359 0301 Past History Travel History Traveled to [place] past 21 day No Medical History Blood Transfusion Hx: No Neurological: CVA, neruopathic pain EENT: NONE Cardiovascular: hypertension Respiratory: NONE Gastrointestinal: GERD Hepatic: NONE Renal: urinary incontinence, UTI'S Musculoskeletal: osteoarthritis Psychiatric: NONE Endocrine: hypothyroidism Blood Disorders: NONE Cancer(s): NONE 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 Home Services at Home: Nursing Smoking Status: Former Smoker ETOH Use: occasional use Illicit Drug Use: denies illicit drug use Functional Ability Ambulation: walker Review of Systems Review of Systems Constitutional: Denies: diaphoresis, fever, malaise, weakness. EENTM: Denies: no symptoms. Cardiovascular: Denies: no symptoms. Respiratory: Denies: no symptoms. GI: Reports: see HPI. Genitourinary: Reports: dysuria, frequency. Musculoskeletal: Denies: no symptoms. Skin: Denies: no symptoms. Neurological/Psychological: Reports: confusion. Hematologic/Endocrine: Denies: no symptoms. Immunologic/Allergic: Denies: no symptoms. All Other Systems: Reviewed and Negative Exam & Diagnostic Data Vital Signs and I&O Vital Signs Date Time Temp Pulse Resp B/P B/P Pulse O2 O2 Flow FiO2 Mean Ox Delivery Rate 12/22 1315 100.1 12/22 1209 100.1 12/22 1147 100.1 76 18 116/60 93 Room Air 12/22 1045 Room Air 12/22 1002 100.0 12/22 1002 100.0 12/22 0955 97.4 78 18 112/78 98 Room Air 12/22 0807 98.4 78 18 108/59 98 Room Air 12/21 2352 66 153/71 12/21 2351 153/71 12/21 2337 97.9 67 18 96 Room Air Intake & Output 12/22 1600 12/22 0400 12/21 1600 12/21 0400 12/20 1600 12/20 0400 Intake Total 1100 Output Total Balance 1100 Intake, IV 800 Intake, Oral 300 Patient 160 lb 160 lb Weight Weight Reported by Patient Reported by Patient Measurement Method Physical Exam General Appearance: well developed/nourished, no apparent distress, alert, comfortable Head: atraumatic, normal appearance Eyes: Bilateral: normal appearance. Ears, Nose, Throat: normal pharynx, normal ENT inspection Neck: normal inspection, supple, full range of motion Respiratory: normal breath sounds, chest non-tender Cardiovascular: regular rate/rhythm Gastrointestinal: normal bowel sounds, soft, non-tender, no organomegaly Back: normal inspection, normal range of motion Extremities: normal inspection, normal capillary refill Neurologic/Psych: no motor/sensory deficits, awake, alert, oriented x 3 Skin: intact, normal color, warm/dry Results Pertinent Lab Results: Laboratory Tests 12/22 12/22 0346 0255 Chemistry Lactic Acid Cancelled Urines Urinalysis MOD H Urine Color (YEL,AMB,STR) DIEUDONNE Urine Clarity (CLEAR) TURBD H Urine pH (5.0 - 8.0) 6.0 Ur Specific [place] (1.001 - 1.035) 1.020 Urine Protein (NEG,<30 MG/DL) >=300 H Urine Ketones (NEG) TRACE H Urine Nitrite (NEG) POS H Urine Bilirubin (NEG) NEG@ICTO Urine Urobilinogen (0.1 - 1.0 EU/dl) 1.0 Ur Leukocyte Esterase (NEG) LARGE H Ur Microscopic SEDIMENT EXAMINED Urine RBC (0 - 5 /HPF) >75 H Urine WBC (0 - 2 /HPF) 50-75 H Urine Bacteria (NEG/NONE) MANY H Hyaline Casts (0/LPF) Granular Casts (NONE /LPF) 1-3 H Urine Mucus (FEW,NONE) MANY H Urine Hemoglobin (NEG) LARGE H Urine Glucose (N MG/DL) NEG 12/22 0012 Chemistry Sodium (137 - 145 mmol/L) 137 Potassium (3.5 - 5.1 mmol/L) 4.2 Chloride (98 - 107 mmol/L) 99 Carbon Dioxide (22 - 30 mmol/L) 24 Anion Gap (5 - 16) 14 BUN (7 - 17 mg/dL) 23 H Creatinine (0.5 - 1.0 mg/dL) 1.0 Estimated GFR (>60 ml/min) 52 L BUN/Creatinine Ratio (7 - 25 %) 23.0 Glucose (65 - 99 mg/dL) 145 H Lactic Acid (0.7 - 2.1 mmol/L) 2.0 Calcium (8.4 - 10.2 mg/dL) 9.2 Total Bilirubin (0.2 - 1.3 mg/dL) 0.4 Direct Bilirubin (< 0.4 mg/dL) 0.2 AST (14 - 36 U/L) 26 ALT (9 - 52 U/L) 29 Alkaline Phosphatase (<127 U/L) 46 Troponin I (< 0.11 ng/ml) 0.01 Total Protein (6.3 - 8.2 g/dL) 7.0 Albumin (3.5 - 5.0 g/dL) 4.1 Amylase (30 - 110 U/L) 314 H Lipase (23 - 300 U/L) 271 TSH (0.270 - 4.200 uIU/mL) 12.400 H Free T4 (0.85 - 1.93 ng/dL) 1.22 Hematology CBC w Diff MAN DIFF ORDERED WBC (4.8 - 10.8 /CUMM) 13.1 H RBC (4.20 - 5.40 /CUMM) 4.06 L Hgb (12.0 - 16.0 G/DL) 12.3 Hct (37 - 47 %) 37.4 MCV (81.0 - 99.0 FL) 92.2 MCH (27.0 - 31.0 PG) 30.4 RDW (11.5 - 14.5 %) 15.0 H Plt Count (130 - 400 /CUMM) 330 MPV (7.4 - 10.4 FL) 7.2 L Gran % (42.2 - 75.2 %) 90.7 H Lymphocytes % (20.5 - 51.1 %) 3.8 L Monocytes % (1.7 - 9.3 %) 5.4 Eosinophils % (0 - 5 %) 0 Basophils % (0.0 - 2.0 %) 0.1 Absolute Granulocytes (1.4 - 6.5 /CUMM) 11.9 H Segmented Neutrophils (42.2 - 75.2 %) 78 H Band Neutrophils (0.0 - 5.0 %) 9 H Absolute Lymphocytes (1.2 - 3.4 /CUMM) 0.5 L Lymphocytes (20.5 - 51.1 %) 6 L Monocytes (1.7 - 9.3 %) 7 Absolute Monocytes (0.10 - 0.60 /CUMM) 0.7 H Absolute Eosinophils (0.0 - 0.7 /CUMM) 0 Absolute Basophils (0.0 - 0.2 /CUMM) 0 Platelet Estimate (ADEQUATE) ADEQUATE Normocytic RBCs VERIFIED Normochromic RBCs VERIFIED PUBS MCHC (33.0 - 37.0 G/DL) 33.0 Imaging/Other Studies: 2014:flexible sigmoidoscopy: FINDINGS: Within the rectum, there was scattered exudate which may have represented pseudomembranes. There was mild erythema. Biopsies were obtained. In the sigmoid, and to a lesser of an extent in the sigmoid colon, there was exudate, erythema, and edema , but no erosive change. Four biopsies were obtained. There were diverticula within the sigmoid and descending colon. Of note, there was no blood. The patient tolerated the procedure well. IMPRESSION: Colitis, likely infectious (versus ischemic) SERVICE DATE: 12/22/16 EXAM TYPE: CAT - CT ABD & PELVIS W/O IV CONTRAS EXAMINATION: CT ABDOMEN AND PELVIS WITHOUT CONTRAST CLINICAL INFORMATION: Diarrhea, left-sided abdominal discomfort. COMPARISON: 10/24/2013 TECHNIQUE: Multidetector volumetric imaging was performed from the superior aspect of the liver through the pubic symphysis. Sagittal and coronal reformatted images were obtained on the technologist's workstation. DLP: 314 mGy-cm FINDINGS: LUNG BASES: Large hiatal hernia produces mass effect upon the left lower lobe with associated left lower lobe atelectasis. Heart is globally enlarged. LIVER, GALLBLADDER, AND BILIARY TREE: The liver is normal in size, shape, and attenuation. No focal hepatic lesion or biliary ductal dilatation is present. The gallbladder is unremarkable with no evidence of radiopaque gallstones, gallbladder wall thickening, or obvious pericholecystic inflammatory changes. PANCREAS: Unremarkable. SPLEEN: Unremarkable. ADRENAL GLANDS: Unremarkable. KIDNEYS AND URETERS: The kidneys are normal in size, shape, and attenuation. No hydronephrosis, hydroureter, or calculi seen. No perinephric stranding. BLADDER: Bladder is diffusely thick-walled, suggesting underlying inflammation. No focal lesions are identified. GASTROINTESTINAL TRACT: Large hiatal hernia is present, containing the majority of the stomach. Small bowel is normal in caliber. There is herniation of numerous loops of small bowel into the left lower quadrant hernia, likely a large spigelian hernia. The terminal ileum and cecum are situated within a right inguinal hernia. The right inguinal hernia may be a pantaloon type variant. Significant fluid is present within the more inferior pocket. There is diffuse wall thickening in the colon with pericolonic fat stranding, most pronounced in the descending colon, most concerning for colitis. The sensitivity and specificity of this abnormality is somewhat limited by the absence of intravenous and oral contrast material. No evidence of obstruction. ABDOMINAL WALL: As above, are prominent bowel containing hernias in the left lower quadrant and right lower quadrant. The left lower quadrant hernia is likely a spigelian hernia. The right lower quadrant hernia appears mixed with 2 separate components, potentially both inguinal or 1 inguinal and 1 spigelian. Fluid is present within the inferior component of the right lower quadrant/inguinal hernia. No evidence of obstruction. LYMPH NODES: No appreciable adenopathy. VASCULAR: Calcific atherosclerosis is present in the abdominal aorta and iliac arteries. No aneurysmal dilatation. PELVIC VISCERA: Uterus is surgically absent. Ovaries are not discretely seen. OSSEOUS STRUCTURES: There is severe left convex lumbar scoliosis with multilevel degenerative disc disease. There is a chronic compression deformity of L4 which is status post kyphoplasty. No acute fractures are appreciated. IMPRESSION: 1. Pancolitis, most pronounced in the descending colon. 2. Large hiatal hernia 3. Large bowel containing hernias in the left lower quadrant and right lower quadrant. No evidence of obstruction. 4. Thickened bladder wall, potentially due to underlying inflammation. Consider correlation with urinalysis to assess for potential cystitis. 5. Cardiomegaly Assessment/Plan Assessment/Recommendations: Assessment: Ms. Briones is an 86 year old female with multiple medical problems who presented with painless rectal bleeding of uncertain etiology, but she has been stable and she isn't significantly anemic. She did have colitis on her ct scan, but I am uncertain of the clinical significance of this as it was done without oral or iv contrast which limits its sensitivity and she is also without any abdominal pain that I would expect her to have if she truly had colitis. As she has been on antibiotics for UTIs in the recent past it is possible that she may have c. diff colitis, but in general this doesn't bleed. As her hgb has not fallen dramatically it is possible that she has infectious colitis accounting for the ct scan findings and the bleeding may be from hemorrhiods. Acute ischemic colitis is also possible as the inflammation on the ct scan was noted to be more pronounced in the descening colon which is a watershed area, but if this was the case I would also expect her to have pain. Bleeding from diverticulosis, AVMs or possibly even an occut neoplasm is also possible, but I would of expected more of a drop in her hgb if her bleed was from diverticulosis and bleeding from AVMs or an occult malignancy is generally occult. While it may ultimately be reasonable to consider repeating her colonoscopy I would only plan to do this for hemodynamically significant bleeding consdiner her ag and other comorbidities. Recommendations: 1. Follow up stool studies and treat c diff if it is positive 2. Follow CBC q12hrs and transfuse as needed to keep hgb > 8 3. If she remains without further bleeding would restart her plavix tomorrow if medically indicated 4. Notify GI for signs of hemodynamically signficant GI bleeding. I will continue to follow this patient and make further recommendations based on her clinical course. Consult Acknowledgment - Thank you for your consult request.
[2016-12-22 14:57] VITALS: BP 108/60
--- NOTE | 2016-12-22 15:44 | NUR ---
NURSING NOTE: PATIENT HAD LARGE BLOODY BOWEL MOVEMENT WITH CLOTS NOTED. C-DIFF SAMPLE SENT TO LAB PER ORDER. GUAIAC POSITIVE. [employer] CONSULTANT [id number] NOTIFIED.
--- NOTE | 2016-12-22 16:39 | Admission Certification ---
Admission Certification Certification Statement - As attending physician, I certify that at the time of - admission, based on clinical presentation, severity of - symptoms, need for further diagnostic testing and - therapeutic interventions, and risk of adverse outcomes - without in-hospital treatment, in my clinical assessment, - this patient requires an acute hospital stay for a minimum - of two nights or longer. I have also considered psychsocial - factors such as support system, advanced age, financial - issues, cognitive issues, and failed out-patient treatments, - past re-admission history, safety of patient, and lack of - compliance as applicable. Specific rationale supporting this admission is: Admit to the inpatient medical service for further management of her pancolitis. She will be kept nothing by mouth, hydrated intravenously and monitor closely for improvement
[2016-12-22 16:49] LABS: ABSOLUTE BASOPHIL COUNT 0 /CUMM (0.0-0.2); ABSOLUTE EOSINOPHIL COUNT 0 /CUMM (0.0-0.7); ABSOLUTE GRANULOCYTE CT 8.1 /CUMM (1.4-6.5); ABSOLUTE LYMPH COUNT 1.4 /CUMM (1.2-3.4); ABSOLUTE MONOCYTE COUNT 0.8 /CUMM (0.10-0.60); PLATELET COUNT 257 /CUMM (130-400); RED BLOOD CELL CT 3.22 /CUMM (4.20-5.40); WHITE BLOOD CELL COUNT 10.4 /CUMM (4.8-10.8)
[2016-12-22 16:53] LABS: BASOPHIL % 0.4 % (0.0-2.0); EOSINOPHIL % 0.2 % (0-5); GRANULOCYTE % 77.7 % (42.2-75.2); MEAN CORPUSCULAR HGB 30.8 PG (27.0-31.0); MEAN CORPUSCULAR HGB CONC 33.1 G/DL (33.0-37.0); MEAN CORPUSCULAR VOLUME 93.1 FL (81.0-99.0); MEAN PLATELET VOLUME 7.2 FL (7.4-10.4); RBC DISTRIBUTION WIDTH 15.6 % (11.5-14.5)
[2016-12-22 21:45] VITALS: BP 142/72
[2016-12-23 06:20] VITALS: BP 142/80
--- NOTE | 2016-12-23 07:38 | PN- Housestaff ---
BRIDGET SALINAS 12/23/16 0737: Subjective Follow-up For: - Bloody diarrhea - Hypothyroidism Subjective: Patient seen and examined at bedside. She states she was not able to sleep well last night, because it was cold. She had an episode of bloody large bowel movement yesterday afternoon with passage of blood clots, but denies any further episodes. However, it seems like she may have 4 episodes of bowel movements yesterday. Her H&H yesterday evening was 9.9/30.0 (could also be dilutional in addition to ABLA). This morning's labs are pending. Review of Systems Constitutional: Reports: chills, weakness. Denies: fever. EENTM: Denies: visual changes. Cardiovascular: Denies: chest pain, palpitations, peripheral edema, syncope. Respiratory: Denies: cough, short of breath, wheezing. Gastrointestinal: Denies: abdominal pain, constipation, diarrhea, nausea, vomiting. Genitourinary: Reports: no symptoms. Musculoskeletal: Denies: back pain. Neurological/Psychological: Denies: headache, numbness, tingling, tremors. Objective Last 24 Hrs of Vital Signs/I&O Vital Signs Date Time Temp Pulse Resp B/P B/P Pulse O2 O2 Flow FiO2 Mean Ox Delivery Rate 12/23 0620 98.2 64 20 142/80 94 Room Air 12/23 0000 95 Room Air 12/22 2145 98.1 60 20 142/72 95 12/22 1457 99.3 65 18 108/60 95 Room Air 12/22 1454 99.3 12/22 1315 100.1 12/22 1209 100.1 12/22 1147 100.1 76 18 116/60 93 Room Air 12/22 1045 Room Air 12/22 1002 100.0 12/22 1002 100.0 12/22 0955 97.4 78 18 112/78 98 Room Air 12/22 0807 98.4 78 18 108/59 98 Room Air Intake & Output 12/23 0800 12/23 0000 12/22 1600 Intake Total 800 600 Output Total Balance 800 600 Intake, IV 800 300 Intake, Oral 300 Number 4 Bowel Movements Patient 160 lb Weight Weight Reported by Patient Measurement Method Physical Exam General Appearance: Alert, Oriented X3, Cooperative, No Acute Distress HEENT: Atraumatic, PERRLA, EOMI Neck: Supple, No JVD Cardiovascular: Normal S1, Normal S2 Lungs: Clear to Auscultation, Normal Air Movement Abdomen: Normal Bowel Sounds, Soft, mild tenderness to palpation diffusely Neurological: Normal Speech, Strength at 5/5 X4 Ext, Normal Tone, Sensation Intact, Cranial Nerves 3-12 NL, Reflexes 2+ Extremities: mild trace edema bilaterally Vascular: Normal Pulses, Pulses Symmetrical Current Medications: Current Medications Sig/Jason Start time Last Medication Dose Route Stop Time Status Admin Acetaminophen 0 .STK-MED ONE 12/22 1007 DC PO Acetaminophen 650 MG Q6P PRN 12/22 0745 12/22 PO 1002 Acetaminophen 1,000 MG Q6P PRN 12/22 0745 AC 12/22 IV 1315 Amlodipine Besylate 5 MG DAILY 12/22 1000 AC 12/22 PO 1322 Ceftriaxone Sodium 1,000 MG DAILY 12/23 1000 AC IV Citalopram 20 MG DAILY 12/22 1000 AC 12/22 Hydrobromide PO 1322 Dextrose/Sodium 1,000 ML Q10H 12/22 1700 AC 12/23 Chloride IV 12/23 1259 0607 Gabapentin 100 MG Q8H 12/22 0630 AC 12/23 PO 0608 Levothyroxine Sodium 0.1 MG DAILY AC 12/23 0700 AC 12/23 PO 0608 Levothyroxine Sodium 0.088 MG DAILY AC 12/22 0700 DC 12/22 PO 0652 Metoprolol Succinate 25 MG DAILY 12/22 1000 AC 12/22 PO 1322 Metoprolol Tartrate 25 MG DAILY 12/22 1000 DC PO Metronidazole 500 MG Q8 12/22 1400 AC 12/23 PO 0608 Morphine Sulfate 2 MG ONCE PRN 12/22 0745 DC IV 12/22 1345 Sodium Chloride 1,000 ML SEE RATE 12/22 0545 AC 12/22 IV 0836 Last 24 Hrs of Lab/Chas Results Last 24 Hrs of Labs/Mics: Laboratory Tests 12/22/16 1600: CBC w Diff NO MAN DIFF REQ, RBC 3.22 L, MCV 93.1, MCH 30.8, RDW 15.6 H, MPV 7.2 L, Gran % 77.7 H, Lymphocytes % 13.7 L, Monocytes % 8.0, Eosinophils % 0.2, Basophils % 0.4, Absolute Granulocytes 8.1 H, Absolute Lymphocytes 1.4, Absolute Monocytes 0.8 H, Absolute Eosinophils 0, Absolute Basophils 0, PUBS MCHC 33.1 Microbiology 12/22 1540 STOOL: Clostridium difficile Toxin A & B - RECD Assessment/Plan Assessment: 86 y/o female with a PMH of CVA, hypertension, GERD, UTI, osteoarthritis, hypothyroidism, neuropathic pain, depression,and urinary incontinence presenting with complaints of blood in her stool. Vitals on admission BP: 153/71, Pulse: 66; RR: 18, A/F saturating 96% on RA. Labs pertinent for leukocytosis with WBC: 13.1, 9 bands, H&H:12.3/37.4, platelet count: 330,000. Serum chemisteries revelaed Na: 132, K: 4.2, BUN: 23/ Cr: 1.0, serum glucose elevated to 145. LFTs unremarkable, with serum amylase of 314. TSH was abnormal 12.4, and FT4: 1.22. UA was dirty. CT abdomen and Pelvis revealed: Pancolitis, most pronounced in the descending colon. Large hiatal hernia. Large bowel containing hernias in the left lower quadrant and right lower quadrant. No evidence of obstruction. Thickened bladder wall, potentially due to underlying inflammation. Consider correlation with urinalysis to assess for potential cystitis. She was admitted to the Gen Med floor and the following problems were addressed: #Colitis 2/2 infectious vs ischemic (donny - her clinical symptoms were not c/w ischemic etiology). F/U C. Diff toxin Continue on IV Ceftriaxone and Flagyl. Advance diet to full liquids later today. Transition to PO antibiotic ad n dischareg planning t mrw tpo home with PT. #Anemia Her H&H on admission was 12/37.4, however her baseline is 9.0. Of note her H&H was monitored q8 hrs while in the hospital to monitor for ABLA secondary to diarrhea, but it remained stable at 9.4, and the initial H&H is m ost likely 2/2 hemoconcentration. Continue to hold Plavix, for now and resume in AM if no further epiosdes of bleeding #Hypothyroidism Conitnue on Levothryoxine 100mcg daily. F/U TFTs tmrw #Hypokalemia - 2/2 diarrhea - Repelete with IV for now. - F/U BEP in AM #HTN Stable Continue on Metoprolol XL 25mg daily, amlodipine 5mg daily. Resume Hydralazine Resume Lisinopril 40mg daily and Lasix if BP continues to remain elevated. - DVT prophylaxis - On ALPS given ABLA. - Diet - To advnce to full liquid later tonight if tolerates PO better - Code Status - Full Code Problem List: 1. Diarrhea Pain Ratin Pain Location: n/a Pain Goal: Remain pain free Pain Plan: tyelnol Tomorrow's Labs & Rationales: bep - monitor K CBC - monitor h&H Discharge Plan Discharge Disposition: home Stable for Discharge? No Anticipated Discharge (Day): tomorrow LISA RALPH,NARESH 12/23/16 0940: Attending MD Review Statement Attending Statement Attending MD Statement: examined this patient, discuss w/resident/PA/BULL BUCKER, agreed w/resident/PA/BULL BUCKER, reviewed EMR data (avail), discussed with nursing, discussed with case mgmt, amended to note Attending Assessment/Plan: Patient seen and examined. Resting comfortably not in any acute distress. She had a bloody bowel movement yesterday evening but none overnight. She remains hemodynamically stable. I hemoglobin level has been stable overnight. She did have a drop compared to admission however admission labs were likely secondary to hemoconcentration as evidenced by elevated BUNs as well and decreasing also lines post hydration. She is tolerating the clear liquid diet denied nausea vomiting or abdominal pain. Problems: 1. Lower gastrointestinal bleeding 2. Pancolitis 3. Cystitis 4. Uncontrolled hypothyroidism 5. Hypokalemia Plan: -Continue clear liquid diet. If patient continues to tolerate with no more lower GI bleeding she can be advanced to full liquid diet for dinner. -Continue empiric antibiotic therapy. She may be transitioned to oral antibiotics tomorrow if she remains clinically stable. -Her blood pressure was low yesterday morning. It is improving and her antihypertensive regimen are being reinstituted slowly. Her diuretic is still on hold for now. -Anticipate discharge tomorrow if she remains clinically stable.
[2016-12-23 08:36] LABS: ABSOLUTE BASOPHIL COUNT 0 /CUMM (0.0-0.2); ABSOLUTE EOSINOPHIL COUNT 0.1 /CUMM (0.0-0.7); ABSOLUTE GRANULOCYTE CT 7.5 /CUMM (1.4-6.5); ABSOLUTE LYMPH COUNT 1.1 /CUMM (1.2-3.4); ABSOLUTE MONOCYTE COUNT 0.6 /CUMM (0.10-0.60); BASOPHIL % 0.3 % (0.0-2.0); EOSINOPHIL % 0.7 % (0-5); GRANULOCYTE % 80.6 % (42.2-75.2); HEMATOCRIT 28.5 % (37-47); MEAN CORPUSCULAR HGB 30.6 PG (27.0-31.0); MEAN CORPUSCULAR VOLUME 92.6 FL (81.0-99.0); MEAN PLATELET VOLUME 7.5 FL (7.4-10.4); PLATELET COUNT 240 /CUMM (130-400); RBC DISTRIBUTION WIDTH 15.3 % (11.5-14.5); RED BLOOD CELL CT 3.08 /CUMM (4.20-5.40); WHITE BLOOD CELL COUNT 9.3 /CUMM (4.8-10.8)
--- NOTE | 2016-12-23 09:19 | NUR ---
PT IS A+OX4. DENIES PAIN ALTHOUGH DOES REPORT MILD TENDERNESS ON PALPATION OF LOWEST LEFT CORNER OF LLQ OF ABDOME. ABDOMEN SOFT AND DISTENDEAD. NO RESPIRATORY DISTRESS NOTED. DENIES DYSURIA WHEN HAS INCONTINENT EPISODES. TOOK MEDS W/O DIFFICULTY.
--- NOTE | 2016-12-23 12:31 | Discharge Summary ---
Visit Information Visit Dates Admission Date: 12/22/16 Discharge Date: 12/23/16 Hospital Course Course Attending Physician: NARESH GONZALEZ M.D Primary Care Physician: DEBBY RALPH,CONSTANCE Craft Consulting Request: Consulting Specialty: Gastroenterology Hospital Course: 86 y/o female with a PMH of CVA, hypertension, GERD, UTI, osteoarthritis, hypothyroidism, neuropathic pain, depression,and urinary incontinence presenting with complaints of blood in her stool. Vitals on admission BP: 153/71, Pulse: 66; RR: 18, A/F saturating 96% on RA. Labs pertinent for leukocytosis with WBC: 13.1, 9 bands, H&H:12.3/37.4, platelet count: 330,000. Serum chemisteries revelaed Na: 132, K: 4.2, BUN: 23/ Cr: 1.0, serum glucose elevated to 145. LFTs unremarkable, with serum amylase of 314. TSH was abnormal 12.4, and FT4: 1.22. UA was dirty. CT abdomen and Pelvis revealed: Pancolitis, most pronounced in the descending colon. Large hiatal hernia. Large bowel containing hernias in the left lower quadrant and right lower quadrant. No evidence of obstruction. Thickened bladder wall, potentially due to underlying inflammation. Consider correlation with urinalysis to assess for potential cystitis. She was admitted to the Gen Med floor and the following problems were addressed: #Colitis This was thought to be infectious vs ischemic (samley - her clinical symptoms were not c/w ischemic etiology). GI was consulted. No plans for coloscopy. There was concern for C. Diff as patient was on Antibiotics. She was started on IV Ceftriaxone and Flagyl and kept nothing my mouth. Her diarrhea continued to improved and we advanced her diet gradually. Her stool was sent for C. Diff toxin which was negative She is to be transitioned to PO antibiotics upon discharge. #Anemia Her H&H on admission was 12/37.4, however her baseline is 9.0. Of note her H&H was monitored q8 hrs while in the hospital to monitor for ABLA secondary to diarrhea, but it remained stable at 9.4, and the initial H&H was attributed to be 2/2 hemoconcentration. Plaveix was held in the hospital in lieu of her bleeding, which was resumed upon discharge. #Hypothyroidism Patient was on Levothryoxine 0.088mg daily, which was increased to 100mcg daily. Her repeat TFTs were... #HTN Her antihypertensive medications were initially held on admission, given her low blood pressure. These were gradually resumed. She was continued on Metoprolol XL 25mg daily, amlodipine 5mg daily. Hydralazine was restarted and her home dose of Lisinopril 40mg daily and Lasix was subsequently resumed upon discharge. - DVT prophylaxis - She was on ALPS given ABLA. Complications: None Allergies: Uncoded Allergies: "UNKNOWN ANTIBIOTIC" (PER PATIENT "FORGOT THE NAME" 12/21/16) Significant Procedures: SERVICE DATE: 12/22/16 EXAM TYPE: CAT - CT ABD & PELVIS W/O IV CONTRAS FINDINGS: LUNG BASES: Large hiatal hernia produces mass effect upon the left lower lobe with associated left lower lobe atelectasis. Heart is globally enlarged. LIVER, GALLBLADDER, AND BILIARY TREE: The liver is normal in size, shape, and attenuation. No focal hepatic lesion or biliary ductal dilatation is present. The gallbladder is unremarkable with no evidence of radiopaque gallstones, gallbladder wall thickening, or obvious pericholecystic inflammatory changes. PANCREAS: Unremarkable. SPLEEN: Unremarkable. ADRENAL GLANDS: Unremarkable. KIDNEYS AND URETERS: The kidneys are normal in size, shape, and attenuation. No hydronephrosis, hydroureter, or calculi seen. No perinephric stranding. BLADDER: Bladder is diffusely thick-walled, suggesting underlying inflammation. No focal lesions are identified. GASTROINTESTINAL TRACT: Large hiatal hernia is present, containing the majority of the stomach. Small bowel is normal in caliber. There is herniation of numerous loops of small bowel into the left lower quadrant hernia, likely a large spigelian hernia. The terminal ileum and cecum are situated within a right inguinal hernia. The right inguinal hernia may be a pantaloon type variant. Significant fluid is present within the more inferior pocket. There is diffuse wall thickening in the colon with pericolonic fat stranding, most pronounced in the descending colon, most concerning for colitis. The sensitivity and specificity of this abnormality is somewhat limited by the absence of intravenous and oral contrast material. No evidence of obstruction. ABDOMINAL WALL: As above, are prominent bowel containing hernias in the left lower quadrant and right lower quadrant. The left lower quadrant hernia is likely a spigelian hernia. The right lower quadrant hernia appears mixed with 2 separate components, potentially both inguinal or 1 inguinal and 1 spigelian. Fluid is present within the inferior component of the right lower quadrant/inguinal hernia. No evidence of obstruction. LYMPH NODES: No appreciable adenopathy. VASCULAR: Calcific atherosclerosis is present in the abdominal aorta and iliac arteries. No aneurysmal dilatation. PELVIC VISCERA: Uterus is surgically absent. Ovaries are not discretely seen. OSSEOUS STRUCTURES: There is severe left convex lumbar scoliosis with multilevel degenerative disc disease. There is a chronic compression deformity of L4 which is status post kyphoplasty. No acute fractures are appreciated. IMPRESSION: 1. Pancolitis, most pronounced in the descending colon. 2. Large hiatal hernia 3. Large bowel containing hernias in the left lower quadrant and right lower quadrant. No evidence of obstruction. 4. Thickened bladder wall, potentially due to underlying inflammation. Consider correlation with urinalysis to assess for potential cystitis. 5. Cardiomegaly Disposition Summary Disposition Principal Diagnosis: Colitis Additional Diagnosis: HTN Hypothyroidism Hx of CVA Discharge Disposition: home health services Discharge Instructions General Discharge Information Code Status: Full Code Patient's Diet: Heart healthy Patient's Activity: As tolerated Follow-Up Instructions/Appts: Please followup with your primary care phsyician in one week. pelase follow upw ith your GI doctor in one week. Medications at Discharge Discharge Medications: Stop taking the following medications: Levothyroxine Sodium (Synthroid) 88 MCG TABLET ORAL DAILY Qty = 90 Continue taking these medications: Metoprolol Succinate (Metoprolol Succinate) 25 MG TAB 1 Tablet ORAL DAILY Qty = 30 POTASSIUM CHLORIDE (KLOR-CON 10mEq TAB) 10 MEQ TABLET.ER 1 Tablet ORAL DAILY Days = 30 Comments: Last Taken Date: 10/27/13 Last Taken Time: 1100 Amlodipine Besylate (Norvasc) 5 MG TABLET 1 Tablet ORAL DAILY Qty = 30 Clopidogrel Bisulfate (Clopidogrel) 75 MG TABLET 1 Tablet ORAL DAILY Qty = 30 Alendronate Sodium (Fosamax) 70 MG TABLET 1 Tablet ORAL QSAT Qty = 30 Instructions: in the morning, at least 30 minutes before the first food, beverage, or medication of the day Solifenacin Succinate (Vesicare) 10 MG TABLET 1 Tablet ORAL DAILY Hydralazine HCl (Hydralazine HCl) 25 MG TABLET 1 Tablet ORAL THREE TIMES DAILY Qty = 90 Citalopram Hydrobromide (Citalopram HBr) 20 MG TABLET 1 Tablet ORAL AT BEDTIME Qty = 30 Lisinopril (Lisinopril) 40 MG TABLET 1 Tablet ORAL DAILY Qty = 90 Gabapentin (Neurontin) 100 MG CAPSULE 1 Capsule ORAL THREE TIMES DAILY Qty = 90 Mirabegron (Myrbetriq) 50 MG TAB.ER.24H 50 Milligram ORAL DAILY Qty = 60 Furosemide (Lasix) 40 MG TABLET 1 Tablet ORAL DAILY Qty = 60 Oxybutynin Chloride (Ditropan XL) 10 MG TAB.ER.24 1 Tablet ORAL DAILY Qty = 90 Potassium Chloride (Klor-Con 10) 10 MEQ TABLET.ER 1 Tablet ORAL DAILY Qty = 60 Cyanocobalamin (Vitamin B-12) 1,000 MCG TABLET 1 Tablet ORAL DAILY Qty = 90 Cholecalciferol (Vitamin D3) (Vitamin D3) 1,000 UNIT CAPSULE 1 Capsule ORAL DAILY Qty = 30 Fish Oil/Borage/Flax/Om3,6,9#1 (Violet 3-6-9 1,200 MG Softgel) 1,200 MG CAPSULE 1 Capsule ORAL DAILY Qty = 90 Oxycodone HCl/Acetaminophen (Endocet 5-325 Tablet) 5 MG-325 MG TABLET 1 Tablet ORAL DAILY as needed for PAIN Qty = 60 Start taking the following new medications: Levothyroxine Sodium (Synthroid) 100 MCG TABLET 0.1 Milligram ORAL DAILY BEFORE BREAKFAST Qty = 60 No Refills Copies To: DEBBY RALPH,CONSTANCE Craft; QUITA RALPH,PARVIZ Ruff MD Review Statement Documenting Attending: NARESH GONZALEZ M.D
[2016-12-23] MEDS ORDERED: SYNTHROID100 MCG PO (12:39)
--- NOTE | 2016-12-23 12:43 | Patient Discharge Instructions ---
Discharge Instructions General Discharge Information You were seen/treated for: - Colitis Special Instructions: Please follow up with your primary care physician in one week. please repeat bloodwork within one week Please follow up with your GI specialist within one week Diet Recommended Diet: Heart Healthy Activity Activity Self Limited: Yes Acute Coronary Syndrome Inclusion Criteria At DC or during hospital stay patient has or had the following: ACS DIAGNOSIS No Discharge Core Measures Meds if any: Prescribed or Continued at Discharge Meds if any: NOT Prescribed or Continued at Discharge Congestive Heart Failure Inclusion Criteria At DC or during hospital stay patient has or had the following: CHF DIAGNOSIS No Discharge Core Measures Meds if any: Prescribed or Continued at Discharge Meds if any: NOT Prescribed or Continued at Discharge Cerebrovascular accident Inclusion Criteria At DC or during hospital stay patient has or had the following: CVA/TIA Diagnosis No Discharge Core Measures Meds if any: Prescribed or Continued at Discharge Meds if any: NOT Prescribed or Continued at Discharge Venous thromboembolism Inclusion Criteria VTE Diagnosis No VTE Type NONE VTE Confirmed by (Test) NONE Discharge Core Measures - Per Current guidelines, there needs to be overlap - treatment for the first 5 days of Warfarin therapy. - If discharged on Warfarin prior to 5 days of - overlap therapy, the patient will need to be - assessed for post discharge needs including - *Post discharge parental anticoagulation - *Warfarin and/or parental anticoagulation education - *Follow up date to check INR post discharge At least 5 days overlap therapy as Inpatient No Meds if any: Prescribed or Continued at Discharge Note: Overlap Therapy is Warfarin and Anticoagulant Meds if any: NOT Prescribed or Continued at Discharge
[2016-12-23 14:17] VITALS: BP 144/70
[2016-12-23] MEDS ORDERED: CIPRO500 M1 PO (15:37)
[2016-12-23] MEDS ORDERED: FLAGYL250 M1 PO (15:37)
[2016-12-23 22:30] VITALS: BP 116/68
--- NOTE | 2016-12-24 07:29 | PN- Housestaff ---
MADI ADAMS 12/24/16 0728: Subjective Follow-up For: - Bloody diarrhea - Hypothyroidism Complaints: no complaints Subjective: Seen and examined patient. Reported having good sleep last night. States she tolerated [place] last night. Denies Blood in stools, Abdominal pain. Review of Systems Constitutional: Denies: chills, diaphoresis, fever, malaise, weakness, unexplained weight loss. Cardiovascular: Denies: chest pain, edema, orthopena, palpitations, peripheral edema, syncope. Respiratory: Denies: cough, hemoptysis, orthopnea, short of breath, sputum production, stridor, wheezing. Objective Last 24 Hrs of Vital Signs/I&O Vital Signs Date Time Temp Pulse Resp B/P B/P Pulse O2 O2 Flow FiO2 Mean Ox Delivery Rate 12/24 744 97.9 62 20 130/71 95 Room Air 12/24 0000 94 Room Air 12/23 2230 97.7 68 18 116/68 94 Room Air 12/23 2106 68 116/68 12/23 1605 80 146/82 Intake & Output 12/24 1600 12/24 0800 12/24 0000 Intake Total 381 024 1375 Output Total 650 401 Balance 260 150 899 Intake, IV 10 600 Intake, Oral 900 150 700 Number 0 Bowel Movements Output, Stool 1 Output, Urine 650 400 Physical Exam General Appearance: Alert, Oriented X3, Cooperative, No Acute Distress Cardiovascular: Regular Rate, Normal S1, Normal S2 Lungs: Clear to Auscultation, Normal Air Movement Abdomen: Normal Bowel Sounds, Soft, mild tenderness to palpation Extremities: No Edema Current Medications: Current Medications Sig/Jason Start time Last Medication Dose Route Stop Time Status Admin Acetaminophen 650 MG Q6P PRN 12/22 0745 AC 12/22 PO 1002 Acetaminophen 1,000 MG Q6P PRN 12/22 0745 AC 12/22 IV 1315 Amlodipine Besylate 5 MG DAILY 12/22 1000 AC 12/24 PO 0946 Ceftriaxone Sodium 1,000 MG DAILY 12/23 1000 AC 12/24 IV 0946 Citalopram 20 MG DAILY 12/22 1000 AC 12/24 Hydrobromide PO 0946 Clopidogrel Bisulfate 75 MG DAILY 12/24 1000 AC 12/24 PO 0946 Gabapentin 100 MG Q8H 12/22 0630 AC 12/24 PO 1418 Hydralazine HCl 25 MG TID 12/23 1000 AC 12/24 PO 0946 Levothyroxine Sodium 0.1 MG DAILY AC 12/23 0700 AC 12/24 PO 0632 Metoprolol Succinate 25 MG DAILY 12/22 1000 AC 12/24 PO 0946 Metronidazole 500 MG Q8 12/22 1400 AC 12/24 PO 1418 Sodium Chloride 1,000 ML SEE RATE 12/22 0545 DC 12/22 IV 0836 Last 24 Hrs of Lab/Chas Results Last 24 Hrs of Labs/Mics: Laboratory Tests 12/24/16 0645: Anion Gap 9, Estimated GFR > 60, BUN/Creatinine Ratio 10.0, Free T4 1.27, Total T3 0.58 L, TSH &T3 &Free T4 Intrp 5.330 H, CBC w Diff NO MAN DIFF REQ, RBC 2.99 L, MCV 91.9, MCH 30.5, RDW 14.9 H, MPV 7.3 L, Gran % 77.5 H, Lymphocytes % 13.1 L, Monocytes % 7.8, Eosinophils % 1.2, Basophils % 0.4, Absolute Granulocytes 7.1 H, Absolute Lymphocytes 1.2, Absolute Monocytes 0.7 H, Absolute Eosinophils 0.1, Absolute Basophils 0, PUBS MCHC 33.2 Assessment/Plan Assessment: 86 y/o woman with a PMH of CVA, hypertension, GERD, UTI, osteoarthritis, hypothyroidism, neuropathic pain, depression,and urinary incontinence presenting with complaints of blood in her stool. CT abdomen and Pelvis revealed: Pancolitis, most pronounced in the descending colon. Large hiatal hernia. Large bowel containing hernias in the left lower quadrant and right lower quadrant. No evidence of obstruction. Thickened bladder wall, potentially due to underlying inflammation. Consider correlation with urinalysis to assess for potential cystitis. She was admitted to the Gen Med floor and the following problems were addressed: #Colitis 2/2 infectious vs ischemic ([facility] - her clinical symptoms were not c/w ischemic etiology). C. Diff toxin was negative Continue on IV Ceftriaxone and Flagyl. Diet advanced to regular diet today. Will be following up with GI as outpatient within one week. #Anemia Her H&H on admission was 12/37.4, however her baseline is 9.0. Of note her H&H was monitored q8 hrs while in the hospital to monitor for ABLA secondary to diarrhea, H/H remaining stable at 9.1. Advised to repeat bloodwork within one week upon discharge. We resumed her Plavix #Hypothyroidism on Levothryoxine 100mcg daily. #Hypokalemia - 2/2 diarrhea -3.7 today #HTN Stable Continue home meds of Metoprolol XL 25mg daily, amlodipine 5mg daily, Hydralazine and Lisinopril 40mg daily. Lasix resumed upon discharge - DVT prophylaxis - On ALPS given ABLA. - Diet - advanced diet today - Code Status - Full Code Deposition: Medically stable for discharge to home today Spoke to her daughter and gave her an update Problem List: 1. Diarrhea 2. Colitis 3. HTN (hypertension) Pain Ratin Pain Location: na Pain Goal: Pain 4 or less Pain Plan: current regimen Tomorrow's Labs & Rationales: none required Consulting Request: Consulting Specialty: Gastroenterology LISA RALPH,NARESH 12/24/16 1033: Attending MD Review Statement Attending Statement Attending MD Statement: examined this patient, discuss w/resident/PA/HEALTH SPA MANAGER, agreed w/resident/PA/HEALTH SPA MANAGER, reviewed EMR data (avail), discussed with nursing, discussed with case mgmt, amended to note Attending Assessment/Plan: And examined. Resting comfortably and not in any acute distress. No issues overnight. Continues to tolerate a full liquid diet. Denies any bloody stools. She denies any abdominal pain. On examination abdomen is soft and nontender. She has normal bowel sounds. Hemoglobin level this morning is only slightly decreased compared to yesterday down to 9.1 from 9.4. She is essentially been stable all throughout this admission. At this point she is medically stable to be discharged home. She'll continue on oral antibiotic therapy for management of her colitis. She has been advised to follow-up with the gastroenterology service in a week's time for repeat CBCs and monitoring of colitis. Endoscopic evaluation is being held off on giving her advanced age. If her bleeding re-occurs consideration will be given to performing the colonoscopy at that time.
[2016-12-24 07:45] VITALS: BP 130/71
[2016-12-24 08:57] LABS: ABSOLUTE BASOPHIL COUNT 0 /CUMM (0.0-0.2); ABSOLUTE EOSINOPHIL COUNT 0.1 /CUMM (0.0-0.7); ABSOLUTE GRANULOCYTE CT 7.1 /CUMM (1.4-6.5); ABSOLUTE LYMPH COUNT 1.2 /CUMM (1.2-3.4); ABSOLUTE MONOCYTE COUNT 0.7 /CUMM (0.10-0.60); BASOPHIL % 0.4 % (0.0-2.0); EOSINOPHIL % 1.2 % (0-5); GRANULOCYTE % 77.5 % (42.2-75.2); HEMATOCRIT 27.5 % (37-47); MEAN CORPUSCULAR HGB 30.5 PG (27.0-31.0); MEAN CORPUSCULAR HGB CONC 33.2 G/DL (33.0-37.0); MEAN CORPUSCULAR VOLUME 91.9 FL (81.0-99.0); MEAN PLATELET VOLUME 7.3 FL (7.4-10.4); PLATELET COUNT 243 /CUMM (130-400); RBC DISTRIBUTION WIDTH 14.9 % (11.5-14.5); RED BLOOD CELL CT 2.99 /CUMM (4.20-5.40); WHITE BLOOD CELL COUNT 9.2 /CUMM (4.8-10.8)
--- NOTE | 2016-12-24 14:44 | NUR ---
NURSING SHIFT NOTE: PT STABLE FOR DC PER MD ORDER; PAPERWORK COMPLETE, IVS DCD. 299 TO CALL IN MEDICATIONS TO [facility]. SCRIPTS GIVEN, ALL QUESTIONS ASWERED; AWAITING RIDE FROM [facility].
== END 2016-12-24 15:08 | DRG 386 ==
LOC: ERH 23:26 → 2NB 12-22 05:46 → ERHI 12-22 05:46 → ENRESERV 12-22 08:50 → CANRESERV 12-22 08:50 → ENRESERV 12-22 08:51 → ENTRNSPT 12-22 09:55 → EDTRNSPT 12-22 10:16 → EDTRNSPTSTS 12-22 10:16 → 2NB 12-22 10:29 → CMPTRNSPT 12-22 11:23 → ENPENDDIS 12-24 10:46 → 2NB 12-24 15:08
PROVIDERS: Internal Medicine Infectious Disease; Pediatrics; ADMIT Student in an Organized Health Care Education/Training Program
DX: K51.00 Ulcerative (chronic) pancolitis without complications (principal); N39.0 Urinary tract infection, site not specified; G62.9 Polyneuropathy, unspecified; D62 Acute posthemorrhagic anemia; E87.6 Hypokalemia; M19.90 Unspecified osteoarthritis, unspecified site; I10 Essential (primary) hypertension; E03.9 Hypothyroidism, unspecified; F32.9 Major depressive disorder, single episode, unspecified; K44.9 Diaphragmatic hernia without obstruction or gangrene; K21.9 Gastro-esophageal reflux disease without esophagitis; Z86.73 Personal history of transient ischemic attack (TIA), and cerebral infarction without residual deficits
CPT/HCPCS: 36415; 74176; 81001; 82436; 87040; 87086; 93005; 93010; 97116-GO; 97161-GP; 97530-GO; J0131; J0696; J7040; J7042